=== PATIENT | male | born 1965 | race Caucasian/White ===

== ENCOUNTER → 2020-07-23 | Outpatient (CLI) | payer BC ==
--- NOTE | 2020-07-23 19:10 | Diagnostic Imaging Report ---
Indication: Cough Technique: 2 views of the chest Comparison: None Findings: Lungs are hyperinflated. Lungs and pleural space are clear. The heart size is normal Impression: No acute process
== END | disposition home or self-care (01) ==
LOC: RAD 16:26
DX: Z01.818 Encounter for other preprocedural examination (principal); Z01.812 Encounter for preprocedural laboratory examination; R05 Cough
CPT/HCPCS: 71046